=== PATIENT | female | born 1975 | race Caucasian/White ===

== ENCOUNTER → 2016-11-25 | Outpatient (CLI) | payer OTHER ==
--- NOTE | 2016-11-25 12:52 | DIAGNOSTIC IMAGING REPORT ---
PROCEDURE: ABDOMEN/PELVIS WITH CONTRAST CLINICAL INDICATION: ABD PAIN TECHNIQUE: 125 ml of Isovue 300 were injected intravenously and axial images were obtained of the abdomen and pelvis with sagittal and coronal reformations. COMPARISON: None. FINDINGS: ABDOMEN: Clear lung bases. Normal sized heart. No hiatal hernia. The liver, decompressed gallbladder, adrenal glands, kidneys, pancreas and spleen are normal. The abdominal aorta is normal in its course and caliber. No atherosclerosis. There are no suspicious calcifications, retroperitoneal adenopathy or masses. The stomach, upper bowel loops, and mesentery are normal. Intact anterior abdominal wall. The descending colon is diffusely decompressed and demonstrates mild to moderate diverticulosis. There is mild circumferential wall thickening and more numerous diverticula in the proximal sigmoid colon. The adjacent vasculature is mildly prominent/hyperemic. No extraluminal gas, free fluid, or abscess. PELVIS: The appendix and pelvic small bowel loops are normal. Decreased amount of stool in the colon and rectum. An IUD is in place. The uterus, ovaries, urinary bladder, and pelvic vessels are normal. No adenopathy, free fluid, or pelvic mass. Intact osseous structures. IMPRESSION: 1. Findings of mild or early sigmoid diverticulitis without complication. 2. Mild to moderate descending colon diverticulosis. 3. Discussed with Floridalma Hyde in the Urgent Care clinic. All CT scans at this facility use dose modulation, iterative reconstruction, and/or weight-based dosing when appropriate to reduce radiation dose to as low as reasonably achievable.
== END ==
LOC: CT SRH 11:37
DX: K57.30 Diverticulosis of large intestine without perforation or abscess without bleeding (principal)

== ENCOUNTER 2016-12-13 13:47 | Emergency (ER) | payer OTHER ==
--- NOTE | 2016-12-13 14:20 | ED CLINICAL REPORT ---
Clinical Report - Physicians/Mid Levels [facility] [address] [place] [address] 12/13/2016 13:50 [id number] Time Seen: 14:04 Dec 13 2016. Arrived- By private vehicle. Historian- patient and family. HISTORY OF PRESENT ILLNESS Chief Complaint: NECK PAIN. It is described as being in the area of the left trapezius, left side of the cervical spine and cervical spine. The quality is noted to be dull, aching and "pain". Quality not similar to prior episodes. No radiation. Onset was today and it is still present. No bladder dysfunction or bowel dysfunction. Additional history - patient reports waking up with left-sided neck pain radiating into her upper left shoulder. Pain worsens with movement. Reports headache at the site of the neck. Patient reports prior to arrival she took Tylenol, and milligrams of Motrin, ice and heat, with mild relief from all of such. Reports pain worsens with any attempt of movement. No recent illness. Denies fevers. Denies emesis. 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 She has done physical therapy in the past for such. Patient denies an injury. REVIEW OF SYSTEMS No fever, chills, sore throat, cough or difficulty breathing. No skin rash, nausea, vomiting, hematuria or vaginal discharge. She has had a headache (at base of skull). All systems otherwise negative, except as recorded above. PAST HISTORY Problems: Depression. Chronic Headache. Vomiting. Diarrhea. Otitis Externa. Headache. Bronchitis. Migraine Headache. Lumbar Strain. Atypical Chest Pain. Hypertension. LNMP - Last Normal Menstrual Period. Additional Surgeries: Tonsillectomy. Medications: None. Allergies: Erythromycin. Sulfa Antibiotics. Toradol. SOCIAL HISTORY Smoker- current status unknown. No alcohol use or drug use. ADDITIONAL NOTES The nursing notes have been reviewed. PHYSICAL EXAM Vital Signs: 12/13/2016 14:07 BP: 156/99. HR: 84. RR: 16. O2 saturation: 97%. Temp: 98 F. Pain level now: 8/10. Appearance: Alert. Head: No scalp tenderness. Eyes: No pale conjunctivae. ENT: Ears normal. Pharynx normal. No pharyngeal erythema. Neck: Moderate pain in the lower posterior neck upon turning the head to the left. No pain when flexing the neck or extending the neck. No vertebral tenderness. Soft tissue tenderness. No lymphadenopathy or meningeal signs. CVS: Normal heart rate and rhythm. Heart sounds normal. Respiratory: No respiratory distress. Breath sounds normal. No chest wall injury. Abdomen: Normal inspection. Soft. Back: Normal inspection. No tenderness. No vertebral point tenderness. Skin: Skin warm. Normal skin color. No rash. Neuro: Oriented X 3. Mood/affect normal. No motor deficit. No sensory deficit. PROGRESS AND PROCEDURES Course of Care: Her peripheral pain with movement and palpation. No other systemic symptoms. No meningeal signs. Less than history of Toradol allergy, however patient did take Motrin prior to arrival, thus we'll continue with the same regimen and and additional muscle relaxer. Patient given Valium by mouth 10 mg. No indication for opiate use. SUDARSHAN Reviewed, guarding patient's for chronic conditions to PCP, with history of tramadol use. NO suspicious for meningitis given presentation and reproducible nature of such, no signs of infecitous process. 12/13/2016 14:07 BP: 156/99. HR: 84. RR: 16. O2 saturation: 97%. Temp: 98 F. Pain level now: 8/10. Patient is stable. Symptoms better. Patient/family counseled. Disposition: Discharged. CLINICAL IMPRESSION Acute cervical strain. INSTRUCTIONS Apply ice. Do not work today, tomorrow. (alternate heat/ ice follow up with PCP). Warnings: No infection warnings. SEDATIVE MEDICATION: You were given sedative medication during your visit. Do not drive or operate dangerous machinery. Prescription Medications: Robaxin 750 mg: take 1 orally every 8 hours for 5 days, as needed for muscle spasm. Dispense fifteen (15). No refill. Substitution is permissible. Motrin 800 mg tablets: take 1 tablet orally every 8 hours for 5 days, as needed for pain or stiffness. Dispense fifteen (15). No refill. Substitution is permissible. (with food) (Electronically signed by Angelique Wild P.A.-C 12/13/2016 14:30)
--- NOTE | 2016-12-13 14:20 | ED NURSING NOTES ---
Clinical Report - Nurses [facility] [address] [place] [address] 12/13/2016 13:50 Patient: QUYNH TRAMMELL TRIAGE Triage time 14:Dec 13 2016. Chief Complaint: NECK PAIN. Alert. No acute distress. SEPSIS SCREEN: Sepsis Screen: negative. Negative (no infection suspected/documented). [place] COMA SCORE: [place] Coma Scale: 15- eyes open spontaneously (4); best verbal response- oriented x 4 (5); best motor response- obeys commands (6). --14:11 Barbara Teixeira R.N. 14:07 12/13/16. BP: 156/99. HR: 84. RR: 16. O2 saturation: 97%. Temp: 98 F. Pain level now: 03/28. --14:11 Barbara Teixeira R.N. Weight: 65.7 kg stated. Height/Length: 67 inches Per Patient. BMI: 22.7. --14:10 Barbara Teixeira R.N. Medications None. --14:08 Barbara Teixeira R.N. Allergies Erythromycin. Sulfa Antibiotics. Toradol. --14:08 Barbara Teixeira R.N. History Arrived by private vehicle. Historian: patient. Accompanied by family. This started today. ( pt states that she woke up and neck was a little sore and then she was playing with grandchild and all of a sudden she had increased left side neck pain). No history of recent trauma. 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 PAST MEDICAL HX: Tetanus status: up-to-date. Immunizations: up-to-date. Uses an intrauterine device. Denies current . SOCIAL HX: Current every day heavy tobacco smoker (cigarette)- less than 1 pack per day. No alcohol use or drug use. No infectious disease exposure. SELF HARM ASSESSMENT: A self harm assessment was performed. The patient answered "no" to the question "Do you have thoughts of harming or killing yourself?". FALL RISK ASSESSMENT: Fall risk assessment completed. No fall risk identified. NUTRITIONAL RISK ASSESSMENT: The nutritional risk assessment revealed no deficiencies. FUNCTIONAL ASSESSMENT: Functional assessment: no impairments noted. LEARNING NEEDS ASSESSMENT: The learning needs assessment revealed no barriers. ABUSE ASSESSMENT: Abuse assessment: The patient was asked "Do you feel safe in your home?". SKIN INTEGRITY ASSESSMENT: Skin integrity risk assessment completed. No skin integrity risk identified. --14:11 Barbara Teixeira R.N. PROBLEMS: Depression. Chronic Headache. Vomiting. Diarrhea. Otitis Externa. Headache. Bronchitis. Migraine Headache. Lumbar Strain. Atypical Chest Pain. Hypertension. LNMP - Last Normal Menstrual Period. --14:08 Barbara Teixeira R.N. Pleurisy [RuleOut]. --14:08 Barbara Teixeira R.N. ADDITIONAL SURGERIES: Tonsillectomy. --14:08 Barbara Teixeira R.N. Interventions ID band on patient. To room. --14:11 Barbara Teixeira R.N. PHYSICAL ASSESSMENT GENERAL / NEURO / PSYCH: Alert. Oriented X 4. Appears in pain. RESPIRATORY: Respirations not labored. CVS: Normal heart rate and rhythm. Capillary refill less than 2 seconds. GI / : Abdomen soft and nontender. EXTREMITIES: Sensation intact in extremities. BACK: Normal inspection of the neck and back. Soft tissue tenderness in the left upper cervical paraspinous region. --14:11 Barbara Teixeira R.N. NURSING PROGRESS NOTES Patient gowned. Head of bed elevated. Patient identifiers checked. Call light placed in reach. Side rails up x 1. Bed placed in lowest position. Brakes of bed on. --14:12 Barbara Teixeira R.N. 14:21 12/13/2016 Valium (Diazepam) PO Tablets 10 mg given. Allergies verified, confirmed 5 rights and sedative warning given to the patient. --14:21 Barbara Teixeira R.N. DISPOSITION / DISCHARGE 14:22 12/13/16. BP: 155/103. HR: 82. RR: 16. O2 saturation: 98%. Pain level now: 03/28. --14:23 Barbara Teixeira R.N. Departure time: 14:Dec 13 2016. Condition at departure: unchanged. No learning barriers present. Discharge instructions provided and reviewed with the patient. Reviewed medication(s) side effects, precautions, dosing and course information. Prescription(s) given to the patient. Reviewed referral to a primary care physician for followup. Patient verbalized understanding. Written instructions provided in Sami. The patient was discharged home and accompanied by spouse. She left the Emergency Department ambulatory and via private vehicle. Family member driving. FALL RISK ASSESSMENT: Fall risk assessment completed. No fall risk identified. [place] COMA SCORE: [place] Coma Scale: 15- eyes open spontaneously (4); best verbal response- oriented x 4 (5); best motor response- obeys commands (6). --14:29 Barbara Teixeira R.N. Locked/Released at 12/13/2016 19:15 by Barbara Teixeira R.N.
--- NOTE | 2016-12-13 14:20 | ED ORDER SUMMARY ---
..... Patient: QUYNH TRAMMELL OrderSheet [facility] VisitID: [id number] [address] [place] [address] 41y, F Registration Date/Time: 12/13/2016 ORDER SHEET Weight: 65.7 kg (stated) Allergies: Erythromycin, Sulfa Antibiotics, Toradol GENERAL ORDERS: MEDICATION ORDERS: Valium PO 10 mg (HIGH ALERT MEDICATION, NOW) (14:14 12/13/2016 Alfredo Delgadillo) (14:21 Lubna Diggs) IV FLUIDS: ORDER SHEET NOTES: [Electronically signed by Angelique Wild P.A.-C (14:30 12/13/2016)] [Electronically signed by Barbara Teixeira R.N. (19:15 12/13/2016)] [Electronically locked/signed by Barbara Teixeira R.N. (19:15 12/13/2016)]
--- NOTE | 2016-12-13 14:20 | ED NURSING NOTES ---
Clinical Report - Nurses [facility] [address] [place] [address] 12/13/2016 13:50 Patient: QUYNH TRAMMELL TRIAGE Triage time 14:Dec 13 2016. Chief Complaint: NECK PAIN. Alert. No acute distress. SEPSIS SCREEN: Sepsis Screen: negative. Negative (no infection suspected/documented). [place] COMA SCORE: [place] Coma Scale: 15- eyes open spontaneously (4); best verbal response- oriented x 4 (5); best motor response- obeys commands (6). --14:11 Barbara Teixeira R.N. 14:07 12/13/16. BP: 156/99. HR: 84. RR: 16. O2 saturation: 97%. Temp: 98 F. Pain level now: 03/28. --14:11 Barbara Teixeira R.N. Weight: 65.7 kg stated. Height/Length: 67 inches Per Patient. BMI: 22.7. --14:10 Barbara Teixeira R.N. Medications None. --14:08 Barbara Teixeira R.N. Allergies Erythromycin. Sulfa Antibiotics. Toradol. --14:08 Barbara Teixeira R.N. History Arrived by private vehicle. Historian: patient. Accompanied by family. This started today. ( pt states that she woke up and neck was a little sore and then she was playing with grandchild and all of a sudden she had increased left side neck pain). No history of recent trauma. 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 PAST MEDICAL HX: Tetanus status: up-to-date. Immunizations: up-to-date. Uses an intrauterine device. Denies current . SOCIAL HX: Current every day heavy tobacco smoker (cigarette)- less than 1 pack per day. No alcohol use or drug use. No infectious disease exposure. SELF HARM ASSESSMENT: A self harm assessment was performed. The patient answered "no" to the question "Do you have thoughts of harming or killing yourself?". FALL RISK ASSESSMENT: Fall risk assessment completed. No fall risk identified. NUTRITIONAL RISK ASSESSMENT: The nutritional risk assessment revealed no deficiencies. FUNCTIONAL ASSESSMENT: Functional assessment: no impairments noted. LEARNING NEEDS ASSESSMENT: The learning needs assessment revealed no barriers. ABUSE ASSESSMENT: Abuse assessment: The patient was asked "Do you feel safe in your home?". SKIN INTEGRITY ASSESSMENT: Skin integrity risk assessment completed. No skin integrity risk identified. --14:11 Barbara Teixeira R.N. PROBLEMS: Depression. Chronic Headache. Vomiting. Diarrhea. Otitis Externa. Headache. Bronchitis. Migraine Headache. Lumbar Strain. Atypical Chest Pain. Hypertension. LNMP - Last Normal Menstrual Period. --14:08 Barbara Teixeira R.N. Pleurisy [RuleOut]. --14:08 Barbara Teixeira R.N. ADDITIONAL SURGERIES: Tonsillectomy. --14:08 Barbara Teixeira R.N. Interventions ID band on patient. To room. --14:11 Barbara Teixeira R.N. PHYSICAL ASSESSMENT GENERAL / NEURO / PSYCH: Alert. Oriented X 4. Appears in pain. RESPIRATORY: Respirations not labored. CVS: Normal heart rate and rhythm. Capillary refill less than 2 seconds. GI / : Abdomen soft and nontender. EXTREMITIES: Sensation intact in extremities. BACK: Normal inspection of the neck and back. Soft tissue tenderness in the left upper cervical paraspinous region. --14:11 Barbara Teixeira R.N. NURSING PROGRESS NOTES Patient gowned. Head of bed elevated. Patient identifiers checked. Call light placed in reach. Side rails up x 1. Bed placed in lowest position. Brakes of bed on. --14:12 Barbara Teixeira R.N. 14:21 12/13/2016 Valium (Diazepam) PO Tablets 10 mg given. Allergies verified, confirmed 5 rights and sedative warning given to the patient. --14:21 Barbara Teixeira R.N. DISPOSITION / DISCHARGE 14:22 12/13/16. BP: 155/103. HR: 82. RR: 16. O2 saturation: 98%. Pain level now: 03/28. --14:23 Barbara Teixeira R.N. Departure time: 14:Dec 13 2016. Condition at departure: unchanged. No learning barriers present. Discharge instructions provided and reviewed with the patient. Reviewed medication(s) side effects, precautions, dosing and course information. Prescription(s) given to the patient. Reviewed referral to a primary care physician for followup. Patient verbalized understanding. Written instructions provided in Estonian. The patient was discharged home and accompanied by spouse. She left the Emergency Department ambulatory and via private vehicle. Family member driving. FALL RISK ASSESSMENT: Fall risk assessment completed. No fall risk identified. [place] COMA SCORE: [place] Coma Scale: 15- eyes open spontaneously (4); best verbal response- oriented x 4 (5); best motor response- obeys commands (6). --14:29 Barbara Teixeira R.N. Locked/Released at 12/13/2016 19:15 by Barbara Teixeira R.N.
--- NOTE | 2016-12-13 14:20 | ED ORDER SUMMARY ---
..... Patient: QUYNH TRAMMELL OrderSheet [facility] VisitID: [id number] [address] [place] [address] 41y, F Registration Date/Time: 12/13/2016 ORDER SHEET Weight: 65.7 kg (stated) Allergies: Erythromycin, Sulfa Antibiotics, Toradol GENERAL ORDERS: MEDICATION ORDERS: Valium PO 10 mg (HIGH ALERT MEDICATION, NOW) (14:14 12/13/2016 Alfredo Delgadillo) (14:21 Lubna Diggs) IV FLUIDS: ORDER SHEET NOTES: [Electronically signed by Angelique Wild P.A.-C (14:30 12/13/2016)] [Electronically signed by Barbara Teixeira R.N. (19:15 12/13/2016)] [Electronically locked/signed by Barbara Teixeira R.N. (19:15 12/13/2016)]
--- NOTE | 2016-12-13 19:15 | ED DISCHARGE INSTRUCTIONS ---
Patient: QUYNH TRAMMELL General Instructions [facility] VisitID: [id number] [place] [address] 41y, F Registration Date/Time: 12/13/2016 Acute cervical strain. INSTRUCTIONS Apply ice. Do not work today, tomorrow. (alternate heat/ ice follow up with PCP). Warnings: No infection warnings. SEDATIVE MEDICATION: You were given sedative medication during your visit. Do not drive or operate dangerous machinery. Prescription Medications: Robaxin 750 mg: take 1 orally every 8 hours for 5 days, as needed for muscle spasm. Dispense fifteen (15). No refill. Substitution is permissible. Motrin 800 mg tablets: take 1 tablet orally every 8 hours for 5 days, as needed for pain or stiffness. Dispense fifteen (15). No refill. Substitution is permissible. (with food) ADDITIONAL INFORMATION Neck Sprain Or Strain A sudden force that causes turning or bending of the neck (such as in a car accident) can stretch or tear muscles (strain) and ligaments (sprain) and cause neck pain. Sometimes neck pain occurs after a simple awkward movement. In either case, muscle spasm is commonly present and contributes to the pain. Unless you had a forceful physical injury (for example, a car accident or fall), X-rays are usually not ordered for the initial evaluation of neck pain. If pain continues and dose not respond to medical treatment, X-rays and other tests may be performed at a later time. Home care The following guidelines will help you care for your injury at home: You may feel more soreness and spasm the first few days after the injury. Reduce your activity level until symptoms begin to improve. When lying down, use a comfortable pillow that supports the head and keeps the spine in a neutral position. The position of the head should not be tilted forward or backward. Use ice packs (ice in a plastic bag, wrapped in a towel) to treat acute pain. Apply for 20 minutes every 24 hours during the first two days. Then, begin local heat (hot shower, hot bath or heating pad) andmassageto reduce muscle spasm. Some patients feel best alternating hot and cold treatments, or just staying with one method only. Do what feels the best to you and gives the most relief. You may use acetaminophen or ibuprofen to control pain, unless another pain medicine was prescribed.If you have chronic liver or kidney disease or ever had a stomach ulcer or GI bleeding, talk with your doctor before using these medicines. Follow-up care Follow up with your physician or this facility if your symptoms do not show signs of improvement. Physical therapy may be needed. If you had X-rays today, they didnt show any broken bones, breaks, or fractures. Sometimes fractures dont show up on the first X-ray. Bruises and sprains can sometimes hurt as much as a fracture. These injuries can take time to heal completely. If your symptoms dont improve or they get worse, talk with your doctor. You may need a repeat X-ray. When to seek medical care Get prompt medical attention if any of the following occur: Pain becomes worse or spreads into your arms Weakness or numbness in one or both arms Neck Pain [No Trauma] There are several possible causes of neck pain without injury: You can get a minor ligament sprain or muscle strain from a sudden minor neck movement. Sleeping with your neck in an awkward position can also cause this. Some persons respond to emotional stress by tensing the muscles of their neck, shoulders and upper back. Chronic spasm in these muscles can cause neck pain and sometimes headaches. Gradualwear and tearof the joints in the spine can cause degenerative arthritis.This can be a source of occasional or chronic neck pain. With aging or repeated small injuries to the neck, the spinal disks (the cushions between each spinal bone) may bulge and put pressure on a nearby spinal nerve. This causes tingling, pain or numbness spreading from the neck to the shoulder, arm or hand on one side. Acute neck pain usually gets better in one to two weeks. Neck pain related to disk disease, arthritis in the spinal joints or spinal stenosis (narrowing of the spinal canal) can become chronic and last for months or years. Unless you had a forceful physical injury (for example, a car accident or fall), X-rays are usually not ordered for the initial evaluation of neck pain. If pain continues and does not respond to medical treatment, x-rays and other tests may be performed at a later time. Home Care: Rest and relax the muscles. Use a comfortable pillow that supports the head and keeps the spine in a neutral position. The position of the head should not be tilted forward or backward. A rolled up towel may help for a custom fit. Some persons find relief with heat (hot shower, hot bath or heating pad) and massage, while others prefer cold packs (crushed or cubed ice in a plastic bag, wrapped in a towel) . Try both and use the method that feels best for 20 minutes several times a day. You may use acetaminophen (Tylenol) or ibuprofen (Motrin, Advil) to control pain, unless another medicine was prescribed. [ NOTE : If you have chronic liver or kidney disease or ever had a stomach ulcer or GI bleeding, talk with your doctor before using these medicines.] Follow Up with your physician or this facility if your symptoms do not show signs of improvement after one week. Physical therapy or further tests may be needed. [NOTE: A radiologist will review any X-rays or CT scans that were taken. We will notify you of any new findings that may affect your care.] Get Prompt Medical Attention if any of the following occur: Pain becomes worse or spreads into one or both arms Weakness or numbness in one or both arms Increasing headache Neck swelling, difficulty or painful swallowing Fever of 100.4F (38C) or higher, or as directed by your healthcare provider Methocarbamol Oral tablet What is this medicine? METHOCARBAMOL (meth oh MARQUES ba mole) helps to relieve pain and stiffness in muscles caused by strains, sprains, or other injury to your muscles. How should I use this medicine? Take this medicine by mouth with a full glass of water. Follow the directions on the prescription label. Take your medicine at regular intervals. Do not take your medicine more often than directed. Talk to your auto rental supervisor regarding the use of this medicine in children. Special care may be needed. What side effects may I notice from receiving this medicine? Side effects that you should report to your doctor or health home care music therapist as soon as possible: allergic reactions like skin rash, itching or hives, swelling of the face, lips, or tongue blurred vision or changes in vision confusion fainting spells fever nausea or vomiting seizures Side effects that usually do not require medical attention (report to your doctor or health home care music therapist if they continue or are bothersome): dizziness drowsiness headache metallic taste What may interact with this medicine? alcohol or medicines that contain alcohol cholinesterase inhibitors like neostigmine, ambenonium, and pyridostigmine bromide other medicines that cause drowsiness What if I miss a dose? If you miss a dose, take it as soon as you can. If it is almost time for your next dose, take only the next dose. Do not take double or extra doses. Where should I keep my medicine? Keep out of the reach of children. Store at room temperature between 20 and 25 degrees C (68 and 77 degrees F). Keep container tightly closed. Throw away any unused medicine after the expiration date. What should I tell my health care provider before I take this medicine? They need to know if you have any of these conditions: kidney disease seizures an unusual or allergic reaction to methocarbamol, other medicines, foods, dyes, or preservatives or trying to get breast-feeding What should I watch for while using this medicine? You may get drowsy or dizzy. Do not drive, use machinery, or do anything that needs mental alertness until you know how this medicine affects you. Do not stand or sit up quickly, especially if you are an older patient. This reduces the risk of dizzy or fainting spells. Alcohol may interfere with the effect of this medicine. Avoid alcoholic drinks. You have been given the following additional information: Neck Sprain/Strain Neck Pain, No Trauma Methocarbamol Oral tablet Do not work today, tomorrow. (Electronically signed by Angelique Wild P.A.-C 12/13/2016 14:30)
--- NOTE | 2016-12-13 19:15 | ED MAR SUMMARY ---
..... Medication Administration Record [facility] [address] [place] [address] Patient: QUYNH TRAMMELL Visit ID: [id number] 41y, F Weight: 65.7 kg Height/Length: 67 in BMI: 22.7 ALLERGIES: Erythromycin, Sulfa Antibiotics, Toradol Given 14:21 12/13/2016 Barbara Teixeira RShirley Medication Administered: VALIUM [PO] (DIAZEPAM), Dose: 10 mg Tablets PO. Medication Ordered: Valium PO 10 mg (HIGH ALERT MEDICATION, NOW).
--- NOTE | 2016-12-13 19:15 | ED MAR SUMMARY ---
..... Medication Administration Record [facility] [address] [place] [address] Patient: QUYNH TRAMMELL Visit ID: [id number] 41y, F Weight: 65.7 kg Height/Length: 67 in BMI: 22.7 ALLERGIES: Erythromycin, Sulfa Antibiotics, Toradol Given 14:21 12/13/2016 Barbara Teixeira RShirley Medication Administered: VALIUM [PO] (DIAZEPAM), Dose: 10 mg Tablets PO. Medication Ordered: Valium PO 10 mg (HIGH ALERT MEDICATION, NOW).
--- NOTE | 2016-12-13 19:15 | ED MED RECONCILIATION SUMMARY ---
Patient: QUYNH TRAMMELL Medication Reconciliation Report [facility] VisitID: [id number] [address] [place] [address] 41y, F Registration Date/Time: 12/13/2016 Weight: 65.7 kg Height/Length: 67 in. BMI: 22.7 ALLERGIES: Erythromycin, Sulfa Antibiotics, Toradol The patient's Home Medications are listed below: NONE. The source(s) of the original Home Medication information: Not obtained. The following Medications were given to the patient in the Emergency Department: Valium [PO] PO 10 mg, administered: 12/13/2016 2:21:00 PM The following Medications were prescribed to the patient: Robaxin 750 mg: take 1 orally every 8 hours for 5 days, as needed for muscle spasm. Dispense fifteen (15). No refill. Substitution is permissible. -- Angelique Wild, P.A.-C Motrin 800 mg tablets: take 1 tablet orally every 8 hours for 5 days, as needed for pain or stiffness. Dispense fifteen (15). No refill. Substitution is permissible.(with food) -- Angelique Wild, P.A.-C
--- NOTE | 2016-12-13 19:15 | ED MED RECONCILIATION SUMMARY ---
Patient: QUYNH TRAMMELL Medication Reconciliation Report [facility] VisitID: [id number] [address] [place] [address] 41y, F Registration Date/Time: 12/13/2016 Weight: 65.7 kg Height/Length: 67 in. BMI: 22.7 ALLERGIES: Erythromycin, Sulfa Antibiotics, Toradol The patient's Home Medications are listed below: NONE. The source(s) of the original Home Medication information: Not obtained. The following Medications were given to the patient in the Emergency Department: Valium [PO] PO 10 mg, administered: 12/13/2016 2:21:00 PM The following Medications were prescribed to the patient: Robaxin 750 mg: take 1 orally every 8 hours for 5 days, as needed for muscle spasm. Dispense fifteen (15). No refill. Substitution is permissible. -- Angelique Wild, P.A.-C Motrin 800 mg tablets: take 1 tablet orally every 8 hours for 5 days, as needed for pain or stiffness. Dispense fifteen (15). No refill. Substitution is permissible.(with food) -- Angelique Wild, P.A.-C
== END 2016-12-13 14:27 | disposition home or self-care (01) ==
LOC: ED SRH 13:47
DX: S16.1XXA Strain of muscle, fascia and tendon at neck level, initial encounter (principal); X50.0XXA Overexertion from strenuous movement or load, initial encounter; Y93.9 Activity, unspecified; Y99.9 Unspecified external cause status; Y92.9 Unspecified place or not applicable; Z88.1 Allergy status to other antibiotic agents; Z88.2 Allergy status to sulfonamides; Z88.5 Allergy status to narcotic agent